=== PATIENT | female | born 1985 | race Caucasian/White ===

== ENCOUNTER → 2017-01-21 | Outpatient (CLI) | payer OTHER ==
--- NOTE | ~2017-01-21 | MR17 ---
[facility] A Service of [facility] RADIOLOGY TEXT RESULTS PATIENT: HEATHER NEFF LOCATION: [facility] : 85 UNIT #: [id number] AGE: [address]: Mauricio Robledo II, MD SEX: F ORDER DR: [id number] [facility] [address] [place], [place] [address] [id number] O MR#: [id number] Acc #: [id number] NAME: HEATHER NEFF : 1985 SEX: F STUDY DATE/TIME: 01/21/2017 10:44 UNIT: [facility] ROOM: STUDY DESCRIPTION: MR Brain WWo Contrast Attending Physician: Mauricio Robledo II., M.D. Referring Physician: Mauricio Robledo II., M.D. Ordering Physician: Mauricio Robledo II., M.D. Primary Care Physician: [facility] REPORT This report is preliminary unless electronic signature is present. EXAM MRI of the brain with and without contrast dated 01/21/[address] head with and without contrast dated 09/10/2016 HISTORY Dull headache since 01/07/2016. FINDINGS Multisequence multiplanar imaging of the brain was obtained with and without contrast. GFR measured greater than 60. 20 mL of MultiHance was administered intravenously. No acute stroke, enhancing mass, mass effect, midline shift or hydrocephalus. Vascular flow voids of the major cerebral arteries and dural venous sinuses are not obstructed in these thicker slices. Imaged orbits and the ocular structures and mastoids are unremarkable. There is nasal septal deviation to the right with mild paranasal sinus mucosal thickening. Thick slices through the sella with the pituitary gland, pineal region and upper cervical spine are within normal limits. Postcontrast sequences do not demonstrate enhancing lesions. IMPRESSION 1. Brain is unremarkable. 2. Mild paranasal sinus mucosal thickening is noted with S-shaped nasal septal deviation. Dictated by... Swapnil Griffin M.D. THIS IS AN ELECTRONICALLY VERIFIED REPORT Swapnil Griffin M.D. at 01/22/2017 3:32 PM CPR/jw STS. [facility] A Service of [facility] RADIOLOGY TEXT RESULTS PATIENT: [facility]ATH[facility] NEFF [facility] UN[facility] #: [id number] AGE: [address]: Mauricio Robledo II, MD SEX: F ORDER DR: TD: 01/21/2017 18:45 JOB #: [id number] MRI CENTER REPORT COPY
[2017-01-21 10:31] LABS: POC - CREATININE 1.06 mg/dL (0.44-1.03); POC - GFR >60.0 mL/min (>60)
== END | disposition home or self-care (01) ==
LOC: CMRI 09:08
PROVIDERS: Psychiatry & Neurology Neurology
DX: G43.909 Migraine, unspecified, not intractable, without status migrainosus (principal); J34.89 Other specified disorders of nose and nasal sinuses; J34.2 Deviated nasal septum
CPT/HCPCS: 70553; 82565; A9577

== ENCOUNTER 2017-01-31 19:04 | Emergency (ER) | payer OTHER ==
[2017-01-31 19:29] LABS: ALBUMIN SERUM 4.3 g/dL (3.5-5.0); ALKALINE PHOSPHATASE 67 U/L (32-92); ALT (SGPT) 27 U/L (10-40); AST (SGOT) 22 U/L (10-42); BILIRUBIN, DIRECT 0.2 mg/dL (0.0-0.2); BILIRUBIN,INDIRECT 0.6 mg/dL (0.0-0.9); BILIRUBIN,TOTAL 0.8 mg/dL (0.2-2.0); BLOOD UREA NITROGEN 14 mg/dL (9-23); CALCIUM SERUM 9.1 mg/dL (8.4-10.2); CARBON DIOXIDE 22 mmol/L (22-31); CHLORIDE 112 mmol/L (100-111); CREATININE SERUM 0.8 mg/dL (0.6-1.4); GLOM FILT RATE Estimated ABOVE60 mL/min (>60); GLUCOSE FASTING 82 mg/dL (70-110); LIPASE 19 U/L (22-51); POTASSIUM 3.6 mmol/L (3.5-5.1); PROTEIN TOTAL SERUM 7.9 g/dL (6.0-8.3); SODIUM 139 mmol/L (135-145)
[2017-01-31 19:33] LABS: BASOPHIL% 0.3 % (0-2.5); EOSINOPHIL% 0.6 % (0.0-7.0); HEMATOCRIT 41.7 % (35.0-45.0); HEMOGLOBIN 13.7 gm/dL (12.0-16.0); INFLUENZA A NEG (NEG); INFLUENZA B NEG (NEG); LYMPHOCYTE# 1.4 X10e3 (1.0-3.5); LYMPHOCYTE% 21.5 % (17.0-45.0); MEAN CELL VOLUME 88.5 FL (83-96); MEAN CORPUSCULAR HEMOGLOBIN 29.2 PG (28-34); MEAN PLATELET VOLUME 10.3 FL (6.5-11.5); MONOCYTE# 0.5 X10e3 (0-1.0); MONOCYTE% 7.1 % (3.0-12.0); NEUTROPHIL# 4.5 X10e3 (1.5-7.1); NEUTROPHIL% 70.5 % (40-75); PLATELET COUNT 131 X10e3 (140-420); RED BLOOD COUNT 4.71 X10e (3.90-5.30); RED CELL DISTRIBUTION WIDTH 13.7 % (11.0-15.5); WHITE BLOOD COUNT 6.4 X10e3 (4.0-10.5)
[2017-01-31 19:34] LABS: DIFF IND NO
[2017-01-31 20:22] LABS: URINE SOURCE CLEAN CATCH
[2017-01-31 20:30] LABS: URINE APPEARANCE CLOUDY; URINE BLOOD NEG (NEG); URINE COLOR DK YELLOW; URINE GLUCOSE NEG (NEG); URINE KETONE 2+ (NEG); URINE LEUKOCYTE ESTERASE 2+ (NEG); URINE NITRATE NEG (NEG); URINE PROTEIN 1+ (NEG); URINE SPECIFIC GRAVITY 1.036 (1.003-1.035)
[2017-01-31 20:33] LABS: CULTURE INDICATED? YES; URINE BACTERIA AUWI 4+ (NEGATIVE); URINE SQUAMOUS EPITHELIAL CELL MOD /[HPF]; UWBCS1 AUWI 100-200 (0-5)
[2017-01-31 20:35] LABS: URINE BILIRUBIN NEG (NEG)
[2017-01-31 20:36] LABS: U HYALINE CASTS AUWI 0-2 /[LPF]; URBCS1 AUWI 0-2 /[HPF] (0-2)
== END 2017-01-31 21:58 | disposition home or self-care (01) ==
LOC: CED 19:04
PROVIDERS: Emergency Medicine
DX: N39.0 Urinary tract infection, site not specified (principal); R11.2 Nausea with vomiting, unspecified; R19.7 Diarrhea, unspecified
CPT/HCPCS: 36415; 80048; 80076; 81003; 83690; 84703; 85025; 87086; 87804; 96361; 96365; 96375; 99284; J0696; J2405